=== PATIENT | female | born 1955 | race African-American/Black ===

== ENCOUNTER 2021-08-28 16:07 | Outpatient (CLI) | payer BC ==
[2021-08-29 11:26] LABS: SARS-CoV-2 PCR by NAA Not Detected (NotDetected)
== END 2021-08-28 16:08 | disposition home or self-care (01) ==
LOC: CSHLAB 16:07
PROVIDERS: ATTEND Internal Medicine Gastroenterology
DX: Z20.822 Contact with and (suspected) exposure to COVID-19 (principal); K52.9 Noninfective gastroenteritis and colitis, unspecified
CPT/HCPCS: U0003; U0005

== ENCOUNTER 2021-08-30 12:16 | Day surgery (SDC) | payer BC ==
[2021-08-28 13:56] VITALS: BMI 38.0
[2021-08-30] MEDS ORDERED: Lidocaine 1% MPF 2 ML VIAL ONE (12:43)
[2021-08-30] MEDS ORDERED: PROPOFOL 40 ML ONE (13:09)
== END 2021-08-30 14:48 | disposition home or self-care (01) ==
LOC: CSHSDC 12:16
PROVIDERS: ATTEND Internal Medicine Gastroenterology
PROC: 0DBL8ZZ Excision of Transverse Colon, Via Natural or Artificial Opening Endoscopic (ICD-10-PCS; principal; 2021-08-30)
DX: R19.7 Diarrhea, unspecified (principal); D12.3 Benign neoplasm of transverse colon; K57.30 Diverticulosis of large intestine without perforation or abscess without bleeding; K64.9 Unspecified hemorrhoids; Z80.0 Family history of malignant neoplasm of digestive organs; I10 Essential (primary) hypertension; E11.9 Type 2 diabetes mellitus without complications; E78.5 Hyperlipidemia, unspecified; E03.9 Hypothyroidism, unspecified; E66.9 Obesity, unspecified; G47.30 Sleep apnea, unspecified
CPT/HCPCS: 88305; J2704

== ENCOUNTER 2025-06-07 16:03 | Outpatient (CLI) | payer OTHER | END 2025-06-07 16:04 | disposition home or self-care (01) | LOC: CSHRAD 16:03 | PROVIDERS: ATTEND Internal Medicine Hematology & Oncology | DX: C90.00 Multiple myeloma not having achieved remission (principal); D53.9 Nutritional anemia, unspecified; D53.8 Other specified nutritional anemias | CPT/HCPCS: 71046 ==